=== PATIENT | female | born 1950 | race Caucasian/White ===

== ENCOUNTER 2022-02-15 15:04 | Outpatient (CLI) | payer BC, SELFPAY | END 2022-02-15 15:05 | disposition home or self-care (01) | LOC: ANHLAB 15:06 | PROVIDERS: PCP Family Medicine; Visit Provider Family Medicine | DX: E03.9 Hypothyroidism, unspecified (principal) | CPT/HCPCS: 36415; 84439; 84443 ==

== ENCOUNTER 2022-05-08 22:40 | Emergency (ER) | payer BC, SELFPAY ==
[2022-05-08] VITALS (9 sets, daily range): BP systolic 132–149; BP diastolic 72–86; PULSE 90–112; RESP 15–28; TEMP 37.1; O2SAT 96–100
--- NOTE | ~2022-05-08 | XR_ITS ---
EXAMINATION: XR femur LT min 2V DATE: 05/08/2022 23:54 INDICATION: Left thigh injury. Fall. TECHNIQUE: 2 views of left femur on 5 radiographs were obtained. COMPARISON: None. FINDINGS: A true orthogonal projection is not included. Sensitivity is decreased by obesity. There is a comminuted fracture of distal diaphysis of left femur. The main distal fracture fragment demonstra harley 34 degrees medial angulation and shortening. There is moderate osteoarthritis of left hip and lef t knee. IMPRESSION: 1. Comminuted fracture of distal diaphysis of left femur. 2. Polyarticular osteoarthritis. Reviewed, dictated and finalized at location A.
--- NOTE | 2022-05-08 22:56 | ED.LOWEXIN ---
HPI - Extremity Injury (Lower) General Chief Complaint: Extremity Injury, Lower Stated Complaint: left knee pain Time Seen by Provider: 05/08/22 22:40 History of Present Illness HPI Narrative: 71-year-old female presents the emergency room via EMS for evaluation of left knee pain. EMS was called on scene to patient who slipped and fell in the bathroom. Patient was found on the bathroom floor with her legs spread apart wedged between the toilet and bathtub. Patient is complaining of left knee pain and a laceration to her left ankle. Related Data Home Medications Medication Instructions Recorded Confirmed cholecalciferol (vitamin D3) 50 50 mcg PO DAILY 02/15/22 02/15/22 mcg (2,000 unit) capsule Allergies Allergy/AdvReac Type Severity Reaction Status Date / Time No Known Allergies Allergy Verified 05/08/22 22:47 Review of Systems Review of Systems: CONSTITUTIONAL: Denies fever, chills, or sweats. EYES: Denies visual changes, redness, or discharge. ENT: Denies rhinorrhea, congestion, sore throat, or otalgia. CARDIOVASCULAR: Denies chest pain, palpitations, or edema. RESPIRATORY: Denies cough or dyspnea. GASTROINTESTINAL: Denies abdominal pain, nausea, vomiting, or diarrhea. GENITOURINARY: Denies dysuria or hematuria. SKIN: Reports laceration to the left ankle MUSCULOSKELETAL: Reports left knee pain NEUROLOGIC: Denies headache, numbness, dizziness, or weakness. PSYCHIATRIC: Denies anxiety or depression. [facility] Past Medical History Medical History HLD (hyperlipidemia) Hypothyroidism Low vitamin D level Obesity Osteoarthritis of knees, bilateral RLS (restless legs syndrome) Surgical History Surgical History Wrist fracture, closed s/p ORIF R Family History Family History Father Lung cancer Bone cancer Social History Social History Smoking packs per day: 1 Smoking cigarettes per day: 20.0 Years smoked: 40 Smoking pack-years: 40.00 Smoking status: Former smoker Tobacco type: cigarettes Second hand tobacco smoke exposure: No Smoking end date: 10/30/18 Alcohol intake: never Substance use: never Substance use type: does not use Gender identity (if verbalized by the patient): Female Sexual Orientation (if Verbalized by the Patient): Straight or Heterosexual Exam Narrative: GENERAL: Morbidly obese, in moderate acute distress. HEAD: Normocephalic, atraumatic. EYES: Conjunctivae normal, PERRLA and EOMI. CHEST: Clear to auscultation. No respiratory distress. No wheezes rales or rhonchi. No tenderness. HEART: Regular rate and rhythm. No murmur heard. Normal peripheral pulses. ABDOMEN: Soft, nontender, nondistended, normal active bowel sounds. EXTREMITIES: Left leg: tenderness over the midfemur SKIN: 6 cm linear laceration to the medial surface of the lower left leg NEURO: No focal deficits. Alert and oriented x3. MAEW. CN's II-XI intact bilaterally PSYCH: Cooperative. Normal mood and affect. Course Course Emergency Course: 0000: Case discussed with Dr. Regino Vital at [facility] emergency room. He is the accepting physician. Patient will be transferred in stable condition via ALS transport. Vital Signs Vital signs: Vital Signs Temperature 37.1 C 05/08/22 22:41 Pulse Rate 94 05/08/22 22:41 Respiratory Rate 20 05/08/22 22:41 Blood Pressure 144/86 H 05/08/22 22:41 Pulse Oximetry 99 05/08/22 22:41 Oxygen Delivery Room Air 05/08/22 22:41 Temperature 37.1 C 05/08/22 22:41 Pulse Rate 109 H 05/09/22 00:19 Respiratory Rate 20 05/09/22 00:19 Blood Pressure 132/75 05/09/22 00:19 Pulse Oximetry 99 05/09/22 00:19 Oxygen Delivery Room Air 05/08/22 22:41 Procedures Laceration Laceration 1: Date: 05/09/22
[2022-05-09] MEDS: LIDO 1%/EPINEPHRINE 1:100,000 20 ML VIAL 30 ML INFILTRATE (00:15)
[2022-05-09 00:19] VITALS: BP 132/75; PULSE 109; RESP 20; O2SAT 99
--- NOTE | 2022-05-09 00:28 | PC.NURSE ---
Report to PABLO Parks at [facility]. Left lower extremity laceration repaired with ina by AMENA Rivers. EMS en route.
[2022-05-09] MEDS: fentaNYL CITRATE INJ (*CRX) 100 MCG/2 ML VIAL IV PUSH (00:29)
[2022-05-09] MEDS: HYDROmorphone HCL INJ (*CRX) 1 MG/ML SYR IV PUSH (00:55)
--- NOTE | 2022-05-09 01:02 | PC.NURSE ---
Lift assist provided to help EMS get pt on stretcher.
== END 2022-05-09 01:19 | disposition short-term general hospital (02) ==
PROVIDERS: Emergency Provider Nurse Practitioner Family; PCP Family Medicine
DX: S79.192A Other physeal fracture of lower end of left femur, initial encounter for closed fracture (principal); S81.812A Laceration without foreign body, left lower leg, initial encounter; E78.5 Hyperlipidemia, unspecified; E03.9 Hypothyroidism, unspecified; M17.0 Bilateral primary osteoarthritis of knee; G25.81 Restless legs syndrome; Z87.891 Personal history of nicotine dependence; W01.0XXA Fall on same level from slipping, tripping and stumbling without subsequent striking against object, initial encounter
CPT/HCPCS: 12002; 73552; 96374; 96375; 99284; 99285; J1170; J3010